=== PATIENT | male | born 1975 | race Native Hawaiian/Other Pacific Islander ===

== ENCOUNTER 2016-09-15 15:52 | Outpatient (CLI) | payer OTHER | END 2016-09-15 19:19 | disposition home or self-care (01) | LOC: RAD 15:52 | DX: S22.31XA Fracture of one rib, right side, initial encounter for closed fracture (principal) ==

== ENCOUNTER 2017-03-17 08:51 | Outpatient (CLI) | payer OTHER | END 2017-03-17 19:28 | disposition home or self-care (01) | LOC: RAD 08:51 | DX: M25.551 Pain in right hip (principal) ==

== ENCOUNTER 2017-03-25 06:27 | Outpatient (CLI) | payer OTHER ==
[2017-03-25 06:48] LABS: PLATELET COUNT 235 K/uL (142-355)
[2017-03-25 08:02] LABS: POTASSIUM 4.3 mmol/L (3.6-5.2)
== END 2017-03-25 23:48 | disposition home or self-care (01) ==
LOC: LABW 06:27
PROVIDERS: Nurse Practitioner Family
DX: Z00.00 Encounter for general adult medical examination without abnormal findings (principal); R79.89 Other specified abnormal findings of blood chemistry
CPT/HCPCS: 36415; 80053; 80061; 84153; 84443; 85027

== ENCOUNTER 2020-01-31 09:19 | Outpatient (CLI) | payer OTHER | END 2020-01-31 18:56 | disposition home or self-care (01) | LOC: RAD 09:19 | PROVIDERS: ATTEND Nurse Practitioner Family | DX: M79.672 Pain in left foot (principal) ==

== ENCOUNTER 2022-03-23 17:20 | Outpatient (CLI) | payer OTHER | END 2022-03-23 19:58 | disposition home or self-care (01) | LOC: RAD 17:20 | PROVIDERS: ATTEND Nurse Practitioner Family | DX: M25.561 Pain in right knee (principal) ==

== ENCOUNTER 2022-04-21 13:07 | Outpatient (CLI) | payer OTHER | END 2022-04-21 22:29 | disposition home or self-care (01) | LOC: MRI 13:07 | PROVIDERS: ATTEND Nurse Practitioner Family | DX: M25.561 Pain in right knee (principal); M25.571 Pain in right ankle and joints of right foot ==